=== PATIENT | male | born 1980 | race Caucasian/White ===

== ENCOUNTER → 2016-10-11 | Outpatient (CLI) | payer OTHER ==
[2016-10-12 07:37] LABS: ESTIMATED AVERAGE GLUCOSE 146 mg/dl; HA1C FLAG Normal (Normal)
== END | disposition home or self-care (01) ==
LOC: C.LAB1850 14:16
PROVIDERS: ATTEND Physician Assistant
DX: E13.9 Other specified diabetes mellitus without complications (principal)

== ENCOUNTER → 2017-07-16 | Outpatient (CLI) | payer OTHER ==
[2017-07-16 10:26] LABS: HEMOGLOBIN A1C 7.8 % (4.5-5.6)
[2017-07-16 12:39] LABS: BLOOD UREA NITROGEN 14 mg/dl (7-18); CREATININE 0.87 mg/dl (0.60-1.40); GLUCOSE 325 mg/dl (70-99)
[2017-07-16 12:40] LABS: ALBUMIN 3.8 gm/dl (3.4-5.0); ALT/SGPT 27 U/L (12-78); CALCIUM 8.9 mg/dl (8.5-10.1); CARBON DIOXIDE 30 mmol/L (21-32); POTASSIUM 4.1 mmol/L (3.5-5.1); SODIUM 135 mmol/L (136-145)
[2017-07-16 12:47] LABS: ALKALINE PHOSPHATASE 55 U/L (45-117); AST/SGOT 13 U/L (15-37); TOTAL PROTEIN 7.3 gm/dl (6.4-8.2)
== END | disposition home or self-care (01) ==
LOC: C.LAB1850 09:02
PROVIDERS: ATTEND Physician Assistant
DX: E10.9 Type 1 diabetes mellitus without complications (principal); N52.9 Male erectile dysfunction, unspecified